=== PATIENT | male | born 1955 | race Caucasian/White ===

== ENCOUNTER 2020-02-10 17:06 | Emergency (ER) | payer MEDICARE, OTHER, SELFPAY ==
--- NOTE | ~2020-02-10 | CT_ITS ---
EXAMINATION: CTA chest abdomen DATE: 02/10/2020 19:10 INDICATION: Chest and upper back pain TECHNIQUE: Computed tomographic angiography (CTA) of the chest and abdomen was performed with 100 mL Omnipque-350 intravenous contrast. Maximum intensity projection 3D-reconstructions of the aorta and o ther arteries were constructed by the technologist on a separate workstation. The dose-length product (DLP) was 847.76 mGy-cm. Automated exposure control and iterative reconstruction technique were empl oyed. COMPARISON: 10/19/2014 FINDINGS: CHEST CTA: There is no aneurysm or dissection of the thoracic aorta. Calcified coronary artery atherosclerosis i s noted. There are changes of endoluminal aortic valve replacement. The pulmonary arteries are well-o pacified. No pulmonary embolism is identified. There is diffuse volume loss in the left hemithorax. T here are widespread subpleural reticular opacities and honeycombing, consistent with chronic intersti tial lung disease. The right lung is free of acute opacities. There is no pleural effusion or pneumot horax. The heart size is normal. There are age indeterminate compression fractures of T9, T10, and T1 2. There is nonunion at the site of a likely prior transverse sternotomy of the lower sternum with cat rrounding wire sternal sutures. ABDOMEN CTA: There is no aneurysm or dissection of the abdominal aorta. There is calcified atherosclerosis and mil d stenosis at the origin of the celiac axis. The left hepatic artery arises from the left gastric art jose. The common and right hepatic artery arises from the superior mesenteric artery. Single renal art eries are present bilaterally. The inferior mesenteric artery is unremarkable. Calcified atherosclero sis is noted. The liver, spleen, pancreas, and adrenal glands are normal. Stones are present in the n ondistended gallbladder. The kidneys are unremarkable. There are no pathologically enlarged abdominal lymph nodes. There is no free intraperitoneal gas or evidence of bowel obstruction. There is mild anai mbar spondylosis. IMPRESSION: 1. No aneurysm or dissection of the thoracic or abdominal aorta. 2. No pulmonary embolism. 3. Chronic interstitial lung disease of the left lung in a pattern of usual interstitial pneumonia (U IP). 3. Cholelithiasis without evidence of cholecystitis. 4. Age-indeterminate compression fractures of T9, T10, and T12. Reviewed, dictated and finalized at location A. IMPRESSION: 1. No aneurysm or dissection of the thoracic or abdominal aorta. 2. No pulmonary embolism. 3. Chronic interstitial lung disease of the left lung in a pattern of usual int erstitial pneumonia (UIP). 3. Cholelithiasis without evidence of cholecystitis. 4. Age-indeterminate compression fractures of T9, T10, and T12.
--- NOTE | ~2020-02-10 | XR_ITS ---
EXAMINATION: XR chest 2V DATE: 02/10/2020 18:15 INDICATION: Shortness of breath, history of lung transplantation TECHNIQUE: PA and lateral views of the chest are obtained. COMPARISON: None available FINDINGS: Airspace opacities are present in the left mid and lower lung zones. There is no pleural ef fusion or pneumothorax. The heart size is normal. There appear to be changes of endovascular cardiac valve repair. There are age-indeterminate compression fractures in the lower thoracic spine. IMPRESSION: 1. Airspace opacities of the left mid and lower lung zones, consistent with atelectasis versus pneumo judith. Reviewed, dictated and finalized at location A. IMPRESSION: 1. Airspace opacities of the left mid and lower lung zones, consistent with ate lectasis versus pneumonia.
[2020-02-10 17:13] VITALS: BP 180/96; PULSE 108; RESP 22; TEMP 36.8; O2SAT 93
--- NOTE | 2020-02-10 17:13 | ECG_ITS ---
Measurements Intervals [place] Rate: 106 P: -34 [place]: 142 QRS: -5 QRSD: 133 T: 137 QT: 370 QTc: 493 Interpretive Statements SINUS TACHYCARDIA FREQUENT ATRIAL PREMATURE COMPLEXES LEFT BUNDLE BRANCH BLOCK ABNORMAL ECG Electronically Signed On 02-11-2020 7:04:24 CDT by Hany Agrawal D.O.
[2020-02-10 17:17] VITALS: PULSE 104
[2020-02-10 17:35] LABS: Basophils Absolute Auto 0.1 K/mm3 (0.0-0.1); Basophils Percent Auto 0.4 % (0.2-1.2); Eosinophils Percent Auto 0.1 % (0-4.4); Hematocrit 36.9 % (42.0-52.0); Hemoglobin 11.2 g/dL (14.0-18.0); Immature Granulocyte Percent A 2.9 % (0-0.5); Lymphocytes Absolute Auto 0.74 K/mm3 (0.9-3.2); Lymphocytes Percent Auto 4.3 % (18.3-44.2); Mean Corpuscular HGB Conc 30.4 g/dl (32-36); Mean Corpuscular Volume 82.4 fl (80-100); Mean Platelet Volume 12.2 fl (7.4-10.4); Monocytes Absolute Auto 1.3 K/mm3 (0.1-0.6); Monocytes Percent Auto 7.4 % (2.6-8.5); Neutrophils Absolute Auto 14.5 K/mm3 (1.3-6.7); Neutrophils Percent Auto 84.9 % (45.5-73.1); Platelet Count Result 294 k/mm3 (150-375); Red Blood Count 4.48 M/mm3 (4.6-6.20); Red Cell Distribution Width 18.3 % (11.5-14.5); White Blood Count 17.1 K/mm3 (4.5-10.0)
[2020-02-10 17:45] LABS: INR 1.1; Partial Thromboplastin Time 23.5 SECONDS (22.3-36.8); Prothrombin Time 14.2 Seconds (11.1-14.7)
[2020-02-10 17:52] LABS: Anion Gap 12.7 mmol/L (7-16); Blood Urea Nitrogen 19 mg/dL (9-20); Calcium 9.9 mg/dL (8.4-10.2); Carbon Dioxide 30 mmol/L (22-30); Chloride 94 mmol/L (98-107); Estimated CRCL calculation 70 ml/min; Estimated Glomerular Filt Rate > 60; Glucose 238 mg/dL (75-110); Potassium 3.7 mmol/L (3.4-5.0); Sodium 133 mmol/L (137-145)
[2020-02-10 17:57] VITALS: BP 163/90; PULSE 106; RESP 23; O2SAT 96
--- NOTE | 2020-02-10 18:58 | ED.CHESTPAIN ---
HPI - Chest Pain General Chief Complaint: Chest Pain Stated Complaint: chest and upper back pain Time Seen by Provider: 02/10/20 17:26 Source: patient Mode of arrival: ambulatory Limitations: no limitations History of Present Illness HPI narrative: 64-year-old man History of a right lung transplant done some years ago at [place] and on chronic immunosuppression for that Also a history of an aortic valve replacement 3 months ago at [place] and on Eliquis for that Patient says that he has had several episodes of chest pain this year All of them last for several hours and have resolved, until today He has not noticed anything that improves them, he does not have any associated symptoms with them, they are mainly in the mid chest and radiate to the back, and there is some chance that they have been precipitated following eating either walnuts or cashew nuts About 2 weeks ago he had an evaluation in the ER at [place], reports they just told me a bunch of things that it was not , and discharged him with oxycodone Today he had another and possibly his worst episode, and after consultation with his primary care physician it was recommended that he try out the ER at [place] instead of returning to [place] complaint: chest pain Timing of current episode: episodic Prior episodes: Yes Pain location: other (Mid chest) Pain radiation: back Quality: aching Related Data Home Medications Medication Instructions Recorded Confirmed acyclovir 200 mg capsule 200 mg PO BID cap 06/14/19 01/31/20 amlodipine 5 mg tablet 5 mg PO DAILY 06/14/19 01/31/20 aspirin 81 mg tablet,delayed 81 mg PO DAILY 06/14/19 01/31/20 release cholecalciferol (vitamin D3) 50 2,000 unit PO DAILY 06/14/19 01/31/20 mcg (2,000 unit) tablet diphenhydramine HCl 25 mg tablet 50 mg PO Q6H PRN tablet 06/14/19 01/31/20 dofetilide 250 mcg capsule 250 mcg PO Q12H 06/14/19 01/31/20 enoxaparin 60 mg/0.6 mL 60 mg SUB-Q Q12H 06/14/19 01/31/20 subcutaneous syringe fludrocortisone 0.1 mg tablet 0.1 mg PO DAILY 06/14/19 01/31/20 insulin lispro 200 unit/mL (3 mL) See Rx Instructions SUB-Q QACBREAK 06/14/19 01/31/20 subcutaneous pen isavuconazonium sulfate 186 mg 372 mg PO DAILY 06/14/19 01/31/20 capsule levothyroxine 50 mcg tablet 50 mcg PO DAILY 06/14/19 01/31/20 minocycline 100 mg capsule 100 mg PO Q12H 06/14/19 01/31/20 nitroglycerin 0.4 mg sublingual 0.4 mg SUBLINGUAL Q5M PRN 06/14/19 01/31/20 tablet polyethylene glycol 3350 17 gram 17 gm PO DAILY 06/14/19 01/31/20 oral powder packet prednisone 5 mg tablet 5 mg PO DAILY 06/14/19 01/31/20 sulfamethoxazole 800 1 tablet PO Q12H 06/14/19 01/31/20 mg-trimethoprim 160 mg tablet tamsulosin 0.4 mg capsule 0.4 mg PO DAILY 06/14/19 01/31/20 apixaban 5 mg tablet 5 mg PO BID 08/02/19 01/31/20 furosemide 40 mg tablet 40 mg PO BID 08/02/19 01/31/20 insulin glargine 100 unit/mL (3 30 unit SUB-Q DAILY 08/02/19 01/31/20 mL) subcutaneous pen metoprolol tartrate 25 mg tablet 25 mg PO BID tablet 08/02/19 01/31/20 mycophenolate mofetil 500 mg tablet 1,000 mg PO Q12H tablet 08/02/19 01/31/20 tacrolimus 0.5 mg capsule 1.5 mg PO Q12H cap 08/02/19 01/31/20 clopidogrel 75 mg tablet 75 mg PO DAILY 11/02/19 01/31/20 rosuvastatin 40 mg tablet 40 mg PO DAILY 01/31/20 01/31/20 Allergies Allergy/AdvReac Type Severity Reaction Status Date / Time gramicidin D Allergy Mild Verified 11/23/14 07:04 neomycin Allergy Mild Verified 11/23/14 07:04 bacitracin Allergy Unknown Hives Verified 11/10/18 08:40 polymyxin B Allergy Unknown Hives Verified 11/10/18 08:40 Review of Systems Review of Systems: All systems reviewed & are unremarkable except as noted in HPI and below Constitutional: Constitutional: Denies chills and Denies fever(s) ENT: Denies vertigo and Denies sore throat Cardiovascular: Cardiovascular: Reports chest pain, Denies rapid heart rate and Denies radiating jaw, neck or arm pain Respiratory: Respiratory: Denies cough a
[2020-02-10 19:34] VITALS: BP 175/86; PULSE 108; RESP 23; O2SAT 94
[2020-02-10] MEDS: BELLADONNA ALK/PHENOB ELIX 10 ML, MAG HYDROX/ALUMINUM HYD/SIMETH 30 ML, LIDOCAINE HCL 2... PO (19:53)
[2020-02-10 20:13] LABS: Glucose Point of Care 214 (65-105)
--- NOTE | 2020-02-10 20:18 | PC.NURSE ---
pt states pain still 01/25 after GI cocktail notified.
[2020-02-10 20:21] LABS: Lipase 26 U/L (23-300)
[2020-02-10 20:49] VITALS: BP 162/88; PULSE 101; RESP 18; O2SAT 99
[2020-02-10 20:51] LABS: Troponin I 0.024 ng/mL (0.000-0.034)
[2020-02-10] MEDS: DICYCLOMINE HCL INJ 20 MG/2 ML VIAL IM (21:00)
[2020-02-10 22:07] VITALS: BP 169/89; PULSE 105; RESP 23; O2SAT 95
[2020-02-12 01:52] LABS: SARS-CoV-2 RNA PCR Negative
== END 2020-02-10 22:09 | disposition home or self-care (01) ==
PROVIDERS: Emergency Provider Emergency Medicine; PCP Family Medicine
DX: K80.20 Calculus of gallbladder without cholecystitis without obstruction (principal); Z20.828 Contact with and (suspected) exposure to other viral communicable diseases; Z94.2 Lung transplant status; Z95.2 Presence of prosthetic heart valve; Z79.01 Long term (current) use of anticoagulants; Z79.82 Long term (current) use of aspirin; Z79.4 Long term (current) use of insulin; Z79.84 Long term (current) use of oral hypoglycemic drugs; R00.0 Tachycardia, unspecified; I49.1 Atrial premature depolarization; I44.7 Left bundle-branch block, unspecified
CPT/HCPCS: 36415; 71046; 71275; 74175; 80048; 82948; 83690; 84484; 85025; 85610; 85730; 87635; 93005; 96372; 99284; A9270; C9803; J0500; Q9967; U0003

== ENCOUNTER 2021-06-02 02:24 | Day surgery (SDC) | payer MEDICARE, OTHER, SELFPAY ==
[2021-05-19 14:56] VITALS: BMI 30.4
[2021-06-02 06:36] VITALS: BP 136/88; PULSE 56; RESP 24; TEMP 35.7; O2SAT 100; BMI 29.6
[2021-06-02 06:37] LABS: Glucose Point of Care 163 mg/dl (65-105)
[2021-06-02] MEDS: LACTATED RINGERS 1,000 ML 150 ML IV CONT (06:40)
--- NOTE | 2021-06-02 06:49 | WPDANESEPPF ---
Anes - Initial Pre Proc Eval Procedure: Operation Date: 06/02/21 07:30 Proposed Procedures p Screening Colonoscopy - Ernie Looney MD Date/Time: 06/02/21 06:49 Surgeon: Ernie Looney MD Pre Op Diagnosis: hx of colon polyps Patient Data Age: 66 Gender: M Height: 1.7 m Weight: 85.8 kg Last Vital Signs Temp 35.7 C L 06/02/21 06:36 Pulse 56 L 06/02/21 06:36 Resp 24 H 06/02/21 06:36 BP 136/88 06/02/21 06:36 Pulse Ox 100 06/02/21 06:36 Allergies Allergy/AdvReac Type Severity Reaction Status Date / Time gramicidin D Allergy Mild Hives Verified 06/02/21 06:19 neomycin Allergy Mild Hives Verified 06/02/21 06:19 bacitracin Allergy Unknown Hives Verified 06/02/21 06:19 polymyxin B Allergy Unknown Hives Verified 06/02/21 06:19 Home Medications Medication Instructions Recorded Confirmed Type acyclovir 200 mg capsule 200 mg PO BID cap 06/14/19 05/19/21 History aspirin 81 mg tablet,delayed 81 mg PO DAILY 06/14/19 05/19/21 History release cholecalciferol (vitamin D3) 50 2,000 unit PO DAILY 06/14/19 05/19/21 History mcg (2,000 unit) tablet diphenhydramine HCl 25 mg tablet 50 mg PO Q6H PRN tablet 06/14/19 05/19/21 History dofetilide 250 mcg capsule 250 mcg PO Q12H 06/14/19 05/19/21 History nitroglycerin 0.4 mg sublingual 0.4 mg SUBLINGUAL Q5M PRN 06/14/19 05/19/21 History tablet polyethylene glycol 3350 17 gram 17 gm PO DAILY 06/14/19 05/19/21 History oral powder packet prednisone 5 mg tablet 5 mg PO DAILY 06/14/19 05/19/21 History tamsulosin 0.4 mg capsule 0.4 mg PO DAILY 06/14/19 05/19/21 History apixaban 5 mg tablet 5 mg PO BID 08/02/19 05/19/21 History mycophenolate mofetil 500 mg tablet 1,000 mg PO Q12H tablet 08/02/19 05/19/21 History tacrolimus 0.5 mg capsule, 1.5 mg PO Q12H cap 08/02/19 05/19/21 History immediate-release rosuvastatin 40 mg tablet 40 mg PO DAILY 01/31/20 05/19/21 History acetaminophen 500 mg capsule 500 mg PO Q6H PRN 03/15/20 05/19/21 History calcium carbonate 600 mg calcium 1,200 mg PO DAILY tablet 03/15/20 05/19/21 History (1,500 mg) tablet mecobalamin (vitamin B12) 1,000 1,000 mcg PO DAILY 03/15/20 05/19/21 History mcg chewable tablet omeprazole 20 mg capsule,delayed 40 mg PO BID cap 03/15/20 05/19/21 History release insulin glargine 100 unit/mL (3 10 unit SUB-Q DAILY ml 11/25/20 05/19/21 History mL) subcutaneous pen insulin lispro 200 unit/mL (3 mL) 5 unit SUB-Q TID ml 11/25/20 05/19/21 History subcutaneous pen metoprolol tartrate 25 mg tablet 12.5 mg PO BID tablet 11/25/20 05/19/21 History pentamidine 300 mg solution for 300 mg INHALATION . Q 30 days ea 11/25/20 05/19/21 History inhalation escitalopram oxalate 10 mg tablet 5 mg PO DAILY #45 tablet 11/26/20 05/19/21 Rx amlodipine 5 mg tablet 5 mg PO DAILY 04/24/21 05/19/21 History ferrous sulfate 325 mg (65 mg 325 mg PO DAILY 04/24/21 05/19/21 History iron) tablet fexofenadine 180 mg tablet 180 mg PO DAILY PRN 04/24/21 05/19/21 History furosemide 40 mg tablet 40 mg PO QAM PRN 04/24/21 05/19/21 History levothyroxine 50 mcg tablet 50 mcg PO DAILY 04/24/21 05/19/21 History fluticasone propionate 50 1 spray NASAL BID PRN #54.6 ml 05/30/21 Rx mcg/actuation nasal spray,suspension Laboratory Tests 06/02/21 06:33 POC Capillary Glucose 163 mg/dl H mg/dl (65-105) Patient hx anesthesia problems: none Family hx anesthesia problems: none Results Review: All pre-operative results and documents have been reviewed as part of the pre-operative evaluation. [facility] Past Medical History Medical History (Updated 06/02/21 @ 06:56 by Cody Fong MD) Aortic valve insufficiency Atrial fibrillation with controlled ventricular response BMI 31.0-31.9,adult Cholelithiasis Chronic anemia Chronic depression Compression fracture of body of thoracic vertebra Congestive heart failure Coronary artery disease involving [place] coronary artery of [place] heart without angina
--- NOTE | 2021-06-02 07:26 | WPDPN ---
Progress Note: A&P Assessment and Plan (1) History of colon polyps: Code(s): Z86.010 - Personal history of colonic polyps Status: Acute Assessment and Plan: Patient has a history of adenomatous colon polyps. Plan is for surveillance colonoscopy now further recommendations will be given after endoscopy. (2) Lung transplant recipient: Code(s): Z94.2 - Lung transplant status Status: Acute Assessment and Plan: Patient followed by pulmonary service at tertiary care center. Appears to be stable after lung transplant. (3) Aortic valve insufficiency: Code(s): I35.1 - Nonrheumatic aortic (valve) insufficiency Status: Acute Assessment and Plan: patient status T AVR procedure because of aortic valve insufficiency appears to be doing well. Subjective Date/time seen: 06/02/21 07:26 This is a 66-year-old white male patient who presents for colonoscopy. Patient has a history of adenomatous colon polyp removed from the colon in 2008. Most recent colonoscopy 2014 was unremarkable. Patient presents today for follow-up colonoscopy. He reports his current weight appetite bowel movements are normal. He denies abdominal pain. Family history is noncontributory. Patient's past history is significant for a lung transplant 3 years ago. This past year he had a TAVR vascular aortic valve repair placement. He states he has been doing well after both these procedures. Family history noncontributory. Review of Systems Review of Systems: All systems reviewed & are unremarkable except as noted in HPI and below Exam Narrative: Physical exam reveals patient be alert. Vital signs stable. HEENT exam is unremarkable. Patient is anicteric. Lungs are clear to auscultation and percussion. Heart is without murmur or extra sounds. Abdominal exam bowel sounds are present soft nontender with no hepatosplenomegaly. Digital external rectal exam is normal. Objective Data Vital Signs Vital Signs: Vital Signs - 24 hr 06/02/21 06:36 Temperature 96.3 F L Pulse Rate 56 L Respiratory Rate 24 H Blood Pressure 136/88 Pulse Oximetry 100 Meds/Results Medications: Active Medications Generic Name Dose Route Start Last Admin Trade Name Freq PRN Reason Stop Dose Admin Lactated Ringer's 1,000 mls @ 150 mls/hr 06/02/21 06:40 06/02/21 06:40 Lr - Lactated Ringers Iv IV CONT 150 mls/hr .Q6H40M FRED Administration Labs Labs: Laboratory Results - last 24 hr 06/02/21 06:33 POC Capillary Glucose 163 H
[2021-06-02 07:48] VITALS: BP 96/60; PULSE 88; RESP 25; O2SAT 100
[2021-06-02 07:58] VITALS: BP 119/85; PULSE 89; RESP 31; O2SAT 100
[2021-06-02 08:03] LABS: Glucose Point of Care 201 mg/dl (65-105)
[2021-06-02 08:08] VITALS: BP 124/61; PULSE 77; RESP 29; O2SAT 100
--- NOTE | 2021-06-04 14:07 | WPDGICN ---
Assessment and Plan Assessment and plan (1) History of colon polyps: Code(s): Z86.010 - Personal history of colonic polyps Status: Acute Assessment and Plan: Patient has a prior history of colon polyps more than 10 years ago. Plan is for screening colonoscopy. Further recommendations will be given after endoscopy. 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 Patient has a distant history of adenomatous colon polyp removed in 2008. Most recent colonoscopy 5 years ago was unremarkable. Patient presents today for screening colonoscopy. He denies abdominal pain. He has had no bleeding. Family history is noncontributory. Patient's past history is significant for atrial fibrillation. He has a distant history of a lung transplant. His but doing well subsequently. He has been treated for GE reflux disease and diabetes . Anticoagulation will be held prior to endoscopy. Review of Systems Review of Systems: All systems reviewed & are unremarkable except as noted in HPI and below PMFSH Past Medical History Medical History (Updated 06/02/21 @ 07:29 by Ernie Looney MD) Aortic valve insufficiency Atrial fibrillation with controlled ventricular response BMI 31.0-31.9,adult Cholelithiasis Chronic anemia Chronic depression Compression fracture of body of thoracic vertebra Congestive heart failure Coronary artery disease involving [place] coronary artery of [place] heart without angina pectoris Essential (primary) hypertension Gastro-esophageal reflux disease without esophagitis Hypothyroidism, unspecified Idiopathic pulmonary 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 Lung transplant recipient Nocturia Obstructive sleep apnea on CPAP auto titrating CPAP with average pressure between 10 and 12 cm water pressure prescribed by web content executive Pulmonary embolism on right (~10/06/20) Recurrent biliary colic Seasonal allergic rhinitis Type 2 diabetes mellitus without complication, with long-term current use of insulin Surgical History Surgical History (Updated 06/02/21 @ 06:56 by Cody Fong MD) Lung transplant status Family History Family History Mother Diabetes mellitus Hypertension Father Family history of coronary artery disease Grandparent Family history of coronary artery disease Social History Social History Smoking packs per day: 1 Smoking cigarettes per day: 20.0 Smoking status: Former smoker Tobacco type: cigarettes Alcohol intake: never Substance use: never Substance use type: does not use Living arrangements: with family Meds Home Medications and Allergies Home Medications Medication Instructions Recorded Confirmed Type acyclovir 200 mg capsule 200 mg PO BID cap 06/14/19 05/19/21 History aspirin 81 mg tablet,delayed 81 mg PO DAILY 06/14/19 05/19/21 History release cholecalciferol (vitamin D3) 50 2,000 unit PO DAILY 06/14/19 05/19/21 History mcg (2,000 unit) tablet diphenhydramine HCl 25 mg tablet 50 mg PO Q6H PRN tablet 06/14/19 05/19/21 History dofetilide 250 mcg capsule 250 mcg PO Q12H 06/14/19 05/19/21 History nitroglycerin 0.4 mg sublingual 0.4 mg SUBLINGUAL Q5M PRN 06/14/19 05/19/21 History tablet polyethylene glycol 3350 17 gram 17 gm PO DAILY 06/14/19 05/19/21 History oral powder packet prednisone 5 mg tablet 5 mg PO DAILY 06/14/19 05/19/21 History tamsulosin 0.4 mg capsule 0.4 mg PO DAILY 06/14/19 1
== END 2021-06-02 08:28 | disposition home or self-care (01) ==
PROVIDERS: PCP Family Medicine; Visit Provider Internal Medicine Gastroenterology
PROC: 0DJD8ZZ Inspection of Lower Intestinal Tract, Via Natural or Artificial Opening Endoscopic (ICD-10-PCS; CPT 45378; principal; 2021-06-02 07:30)
DX: Z12.11 Encounter for screening for malignant neoplasm of colon (principal); Z86.010 Personal history of colon polyps; K57.30 Diverticulosis of large intestine without perforation or abscess without bleeding; K64.8 Other hemorrhoids; Z94.2 Lung transplant status; E11.9 Type 2 diabetes mellitus without complications; D64.9 Anemia, unspecified; F32.9 Major depressive disorder, single episode, unspecified; E03.9 Hypothyroidism, unspecified; I11.0 Hypertensive heart disease with heart failure; I50.9 Heart failure, unspecified; I25.10 Atherosclerotic heart disease of native coronary artery without angina pectoris; K21.9 Gastro-esophageal reflux disease without esophagitis; I48.91 Unspecified atrial fibrillation; J84.10 Pulmonary fibrosis, unspecified; G47.33 Obstructive sleep apnea (adult) (pediatric); Z86.711 Personal history of pulmonary embolism; Z79.4 Long term (current) use of insulin; I35.1 Nonrheumatic aortic (valve) insufficiency; Z87.891 Personal history of nicotine dependence; Z79.01 Long term (current) use of anticoagulants; Z79.82 Long term (current) use of aspirin; E66.9 Obesity, unspecified; Z68.29 Body mass index [BMI] 29.0-29.9, adult
CPT/HCPCS: G0105; 82948; J2001; J2704; J3370; J7120

== ENCOUNTER 2022-06-26 16:42 | Inpatient (IN) | payer MEDICARE, OTHER, SELFPAY ==
[2022-06-26] VITALS (39 sets, daily range): BP systolic 102–140; BP diastolic 74–109; PULSE 97–151; RESP 18–28; TEMP 36.3; O2SAT 94–95
--- NOTE | ~2022-06-26 | XR_ITS ---
XR chest 2V 06/26/2022 17:44 Indication: Chest pain Procedure: AP and lateral views of the chest Comparison: 02/10/2020 Findings: Stable extensive mixed interstitial and airspace disease of the left lung which may represe nt chronic atelectasis/fibrosis and/or atypical pneumonia. Stable cardiomediastinal silhouette. There is a prosthetic heart valve. There is a small right pleural effusion. Impression: 1: Stable extensive mixed interstitial and airspace disease of the left mid and lower lung which may represent chronic atelectasis/fibrosis and/or atypical pneumonia. 2: Small right pleural effusion. Reviewed, dictated and finalized at location [facility] Impression: 1: Stable extensive mixed interstitial and airspace disease of the left mid and lower lung which may represent chronic atelectasis/fibrosis and/or atypical pn eumonia. 2: Small right pleural effusion.
--- NOTE | 2022-06-26 16:46 | ECG_ITS ---
Measurements Intervals [place] Rate: 140 P: [place]: 0 QRS: -7 QRSD: 127 T: 156 QT: 308 QTc: 471 Interpretive Statements ATRIAL FIBRILLATION WITH RAPID VENTRICULAR RESPONSE LEFT BUNDLE BRANCH BLOCK [120+ ms QRS DURATION, 80+ ms Q/S IN V1/V2, 85+ ms R IN I/aVL/V5/V6] COMPARED TO ECG 02/10/2020 17:14:50 ATRIAL FIBRILLATION NOW PRESENT Electronically Signed On 06-26-2022 17:28:56 [employer] by Herb Armstrong M.D.
--- NOTE | 2022-06-26 17:34 | ED.SOB ---
HPI - SOB/Dyspnea General Chief Complaint: Shortness of Breath/Dyspnea Stated Complaint: tachycardia Time Seen by Provider: 06/26/22 17:06 History of Present Illness HPI Narrative: Patient is a 67-year-old male with a history of lung transplantation secondary to pulmonary fibrosis, A. fib on Eliquis, aortic valve replacement, diabetes, hypertension presenting with shortness of breath. Patient states that he has been struggling with shortness of breath over the last several weeks. He saw his sheetmetal patternmaker about 2 weeks ago and was started on ciprofloxacin and a prednisone taper. States that he has continued to be short of breath and has noticed that his heart is racing over the last 1 to 2 weeks. States that it has been sitting in the 130s to 150s. States that he called his environmental health physician's office who told him to come to the ER. Currently, patient reports some mild chest discomfort but he denies chest pain. He denies recent fevers or chills, headache, numbness or weakness, lightheadedness, abdominal pain, nausea or vomiting, diarrhea, leg swelling. Patient states that he has been compliant with his Eliquis. Related Data Home Medications Medication Instructions Recorded Confirmed acyclovir 200 mg capsule 200 mg PO BID 06/14/19 06/27/22 aspirin 81 mg tablet,delayed 81 mg PO DAILY 06/14/19 06/27/22 release (Adult Low Dose Aspirin) cholecalciferol (vitamin D3) 50 2,000 unit PO DAILY 06/14/19 06/27/22 mcg (2,000 unit) tablet polyethylene glycol 3350 17 gram 17 gm PO DAILY PRN Constipation 06/14/19 06/27/22 oral powder packet (Miralax) prednisone 5 mg tablet 5 mg PO DAILY 06/14/19 06/27/22 tamsulosin 0.4 mg capsule 0.4 mg PO DAILY 06/14/19 06/27/22 apixaban 5 mg tablet 2.5 mg PO BID 08/02/19 06/27/22 mycophenolate mofetil 500 mg tablet 1,000 mg PO Q12H 08/02/19 06/27/22 rosuvastatin 40 mg tablet (Crestor) 40 mg PO DAILY 01/31/20 06/27/22 acetaminophen 500 mg capsule 500 mg PO Q6H PRN other 03/15/20 06/27/22 calcium carbonate 600 mg calcium 1,500 mg PO DAILY 03/15/20 06/27/22 (1,500 mg) tablet mecobalamin (vitamin B12) 1,000 1,000 mcg PO DAILY 03/15/20 06/27/22 mcg chewable tablet omeprazole 20 mg capsule,delayed 40 mg PO BID 03/15/20 06/27/22 release pentamidine 300 mg solution for 300 mg inhalation . Q 30 days 11/25/20 06/27/22 inhalation amlodipine 5 mg tablet 5 mg PO DAILY 04/24/21 06/27/22 ferrous sulfate 325 mg (65 mg 325 mg PO DAILY 04/24/21 06/27/22 iron) tablet levothyroxine 50 mcg tablet 50 mcg PO DAILY 04/24/21 06/27/22 insulin glargine 100 unit/mL (3 24 unit subcut DAILY 10/08/21 06/27/22 mL) subcutaneous pen (Lantus Solostar U-100 Insulin) insulin lispro 200 unit/mL (3 mL) 5 unit subcut TID 10/08/21 06/27/22 subcutaneous pen (Humalog KwikPen U-200 Insulin) tacrolimus 0.5 mg capsule, 1 mg PO Q12H 10/08/21 06/27/22 immediate-release cetirizine 10 mg tablet (Zyrtec) 10 mg PO DAILY allergies 03/18/22 06/27/22 metoprolol tartrate 25 mg tablet 25 mg PO BID 03/18/22 06/27/22 furosemide 40 mg tablet 40 mg PO DAILY PRN Edema 06/27/22 06/27/22 insulin lispro 100 unit/mL 1 sliding scale dose subcut 06/27/22 06/27/22 subcutaneous solution (Humalog USEASDIRECTD U-100 Insulin) prednisone 10 mg tablets in a dose 20 mg PO DIRECTED 06/27/22 06/27/22 pack Allergies Allergy/AdvReac Type Severity Reaction Status Date / Time gramicidin D Allergy Mild Hives Verified 06/27/22 06:43 neomycin Allergy Mild Hives Verified 06/27/22 06:43 bacitracin Allergy Unknown Hives Verified 06/27/22 06:43 polymyxin B Allergy Unknown Hives Verified 06/27/22 06:43 Review of Systems Review of Systems: All systems reviewed & are unremarkable except as noted in HPI and below PMFSH Past Medical History Medical History (Updated 06/27/22 @ 17:13 by Tena Valverde MD) Aortic valve insufficiency Aortic valve replacement 10/19/2019. Body mass index (bmi) 30.0-30.9, adult (11/10/18) Chronic anemia Hemoglobin 11.9,
[2022-06-26 17:39] LABS: Alanine Aminotransferase 17 U/L (6-50); Albumin Level 3.5 g/dL (3.5-5.1); Alkaline Phosphatase 61 U/L (38-126); Anion Gap 7 mmol/L (8-16); Aspartate Amino Transferase 23 U/L (17-59); Bilirubin,Total 0.3 mg/dL (0.2-1.3); Blood Urea Nitrogen 68 mg/dL (9-20); Calcium 8.5 mg/dL (8.4-10.2); Carbon Dioxide 23 mmol/L (22-30); Chloride 104 mmol/L (98-107); Estimated CRCL calculation 24 ml/min; Estimated Glomerular Filt Rate 22; Glucose 228 mg/dL (65-110); Lipase 68 U/L (23-300); Potassium 4.8 mmol/L (3.4-5.0); Sodium 134 mmol/L (137-145)
[2022-06-26 17:53] LABS: Troponin I 0.046 ng/mL (0.000-0.034)
[2022-06-26 18:09] LABS: Basophils Percent Auto 0.1 % (0.2-1.2); Eosinophils Percent Auto 0.1 % (0-4.4); Hematocrit 32.8 % (42.0-52.0); Hemoglobin 10.2 g/dL (14.0-18.0); Immature Granulocyte Absolute 0.39 K/mm3 (0.00-0.031); Lymphocytes Absolute Auto 0.22 K/mm3 (0.9-3.2); Lymphocytes Percent Auto 1.2 % (18.3-44.2); Mean Corpuscular HGB Conc 31.1 g/dl (32-36); Mean Corpuscular Hemoglobin 32.6 pg (26-34); Mean Corpuscular Volume 104.8 fl (80-100); Mean Platelet Volume 12.8 fl (7.4-10.4); Monocytes Absolute Auto 0.6 K/mm3 (0.1-0.6); Monocytes Percent Auto 3.1 % (2.6-8.5); Neutrophils Absolute Auto 17.8 K/mm3 (1.3-6.7); Neutrophils Percent Auto 93.5 % (45.5-73.1); Platelet Count Result 136 k/mm3 (150-375); Red Blood Count 3.13 M/mm3 (4.6-6.20); Red Cell Distribution Width 16.2 % (11.5-14.5); White Blood Count 19.1 K/mm3 (4.5-10.0)
[2022-06-26 18:43] LABS: Influenza A QL RT-PCR Negative (Negative); Influenza B QL RT-PCR Negative (Negative); RSV RNA, RT-PCR Negative (Negative); SARS-CoV-2 RNA PCR Negative
[2022-06-26 18:46] LABS: INR 1.1; Prothrombin Time 14.1 Seconds (11.1-14.7)
[2022-06-26 18:47] LABS: Partial Thromboplastin Time 22.1 SECONDS (22.3-36.8)
--- NOTE | 2022-06-26 18:51 | PC.NURSE ---
out of stock if dil[facility]zem drip in [facility], pharmacy notified
[2022-06-26] MEDS: dilTIAZem 100 MG/100 ML 100 MG/100 ML BAG IV CONT (19:00)
[2022-06-26] MEDS: dilTIAZem HCl INJ 25 MG/5 ML VIAL 10 MG IV PUSH (19:04)
[2022-06-26] MEDS: SODIUM CHLORIDE 0.9% IV 500 ML 999 ML IV CONT (19:05)
[2022-06-26 21:41] LABS: NT Pro B Type Natriuretic Pept 19000 pg/mL (5-100)
[2022-06-26 22:03] LABS: Troponin I 0.044 ng/mL (0.000-0.034)
--- NOTE | 2022-06-26 22:12 | PM.IMHP ---
H&P: HPI History of Present Illness Date/Time: 06/26/22 22:12 Chief Complaint: Shortness of breath Narrative: 67-year-old male with past medical history of diastolic dysfunction, TAVR, paroxysmal atrial fibrillation status post cardiac ablation, coronary artery disease with a total of 6 cardiac stents, right-sided lung transplant on immunosuppressive therapy and chronic hypoxic respiratory failure who presented to the ER with shortness of breath. The patient reports to me that a couple of months ago he was hospitalized for a GI bleed. He had an EGD at that time which demonstrated no evidence of ulcer or source of bleeding. He was having melena at that time. His Eliquis was briefly held and his GI bleed stopped. He did not have a colonoscopy at that time. However when he returned home from the hospital stay his CPAP machine was not working. He went through various attempts to obtain a new machine but his new machine also did not work. He did get him new machine a few weeks ago but has not been able to use it due to feeling even more short of breath with the CPAP. He reports that he has been chronically short of breath ever since he had his lung transplant in 2018. However when he followed up with his core piler in May they set him up with some physical therapy and pulmonary rehab services. He said after the 3rd session of pulmonary rehab it was noted that his heart rate is were climbing into the 130s. However as time has gone on he has spent more more time with an elevated heart rate. Last Wednesday he noticed that his heart rate at rest was in the 130s to 150s range. He called his core piler to told him to call his defensive driving instructor. He called his defensive driving instructor and they stated that they would set him up with a heart monitor. However his defensive driving instructor's office never sent him the heart monitor. He stated that over the last week he has become so short of breath that he cannot walk the 10 ft to the bathroom without sitting down to rest. He has not noticed any increased lower extremity swelling from baseline. He does have p.r.n. Lasix was ordered for when his legs swell. He has noticed that abdomen is felt a little bloated over the last couple of weeks despite him trying to lose weight. He does awaken once a week and he thinks that his weight has been pretty much stable. He denies any chest pain. He reports the chest pressure but relates this to his degree of dyspnea. He does not really feel his rapid heart rate. He denies any significant urinary symptoms. He has not had any recent melena or change in in his bowel habits. Denies any nausea or vomiting. He is on PPI therapy for GERD. He denies any fevers or chills. He has not had any significant cough. When he went to his core piler in mid May he was given a prednisone burst with taper. He reports that he has 2 more days of prednisone 20 mg a day a left before he drops down to 10 mg a day before he returns to his baseline prednisone of 5 mg a day. He reports that his Lasix had been changed from daily down to p.r.n. several months ago when his renal function started to decline more. His creatinine at his last core piler appointment was around 2. He reports that since she has been on the steroids his glucoses at home have been in the mid 200s to 300s but before that his A1c was around 7 (February 2022 A1c was 6.9). He sees an food sales clerk at [facility]. His donor services technician, core piler and defensive driving instructor are also at [facility]. He did not go to [facility] because he did not want a sit in [facility] ER waiting room. The patient uses 3 L of oxygen with activity at home. He is usually on CPAP with bleed in oxygen at 1 L at night but he has not been using this for several months. I ordered BiPAP in the ER and the patient refused it. He reports symptoms concerning from mild diabetic peripheral neuropathy in his feet. Review of Systems Review of Systems: 12 systems were reviewed with pertinent posi
[2022-06-26] MEDS: METOPROLOL TARTRATE 50 MG TAB PO (22:24)
[2022-06-27] VITALS (50 sets, daily range): BP systolic 103–172; BP diastolic 68–160; PULSE 81–142; RESP 16–32; TEMP 36.2–36.8; O2SAT 95–100; BMI 31.2
--- NOTE | 2022-06-27 | ECHO_ITS ---
Patient Info Name: Timo Worrell Age: 67 years : 1955 Gender: Male Ht: 67 in Wt: 200 lbs BSA: 2.10 m2 HR: 105 bpm BP: 124 / 84 mmHg Heart Rhythm: Atrial Fibrillation Technical Quality: Other Exam Date: 06/27/2022 10:57 AM Exam Location: [facility] Patient Status: Inpatient Admit Date: 06/27/2022 Staff Ordering Physician: Cari Sneed DO Recovery Coordinator: Charla Giraldo RDCS Attending Provider: Lexy Mancia MD Referring Physician: Naren CHRISTINA; Exam Type: CA echo dop color flow w con Study Info Indications I48.1 - Persistent atrial fibrillation Complete two-dimensional, color flow and Doppler transthoracic echocardiogram is performed with contrast to opacify the left ventricle and to improve the deliniation of the left ventricle endocardial borders. Contrast/Agitated Saline Contrast/Ag. Saline: Definity Amount: 4.00 ml Administered By: Charla Giraldo RUST Summary 1. Technically difficult examination because of obesity. 2. Definity contrast injected to improve left ventricular visualization. 3. Dilated left atrium. 4. Normal LV size and systolic function. 5. Poorly visualized TAVR valve which appears to be functioning normally by Doppler. 6. Trivial amount of mitral regurgitation. 7. Thickened pericardium. Left Ventricle Left ventricular chamber dimension is normal. Left ventricular systolic function is normal, estimated at 60-65%. The left ventricular diastolic function is grade I diastolic dysfunction. Right Ventricle Right ventricular chamber dimension is normal. Left Atria Left atrial chamber dimension is moderately enlarged. Right Atria Right atrial chamber dimension is not well visualized. Aortic Valve The TAVR aortic valve is not well visualized. There is no TAVR aortic valve stenosis. There is no regurgitation of the TAVR aortic valve. Pulmonic Valve The pulmonic valve is not well visualized. Mitral Valve The mitral valve has normal leaflets. There is trace mitral valve regurgitation. Tricuspid Valve The tricuspid valve leaflets are not well visualized. Pericardium/Pleural The pericardium appears thickened pericardium. Aorta The aortic root size at the sinus of Valsalva is normal. Left Ventricular Outflow Tract Name Value Normal LVOT 2D LVOT Diameter 2.01 cm LVOT Doppler LVOT Peak Gradient 4 mmHg LVOT Mean Gradient 2 mmHg LVOT VTI 18.91 cm LVOT VTI/AV VTI Ratio 0.66 LVOT Stroke Volume 60.25 ml LVOT CO 6.05 l/min LVOT CI 2.88 L/min/m2 Pulmonic Valve Name Value Normal PV Doppler PV Peak Gradient 3 mmHg Aortic
--- NOTE | 2022-06-27 00:30 | PC.NURSE ---
patient noted to have no medication list on chart. patient is resting comfortably at this time unable to obtain medication list.
[2022-06-27 00:33] LABS: Troponin I 0.048 ng/mL (0.000-0.034)
[2022-06-27] MEDS: FUROSEMIDE INJ 40 MG/4 ML VIAL IV PUSH (01:07)
--- NOTE | 2022-06-27 01:19 | PCRCNOTE ---
Per pt he refusing CPAP for tonight. Pt placed on 3 liter.
--- NOTE | 2022-06-27 03:15 | PC.NURSE ---
assumed care of the patient. Patient sleeping at this time. Patient unable to give information regarding his medications. No medication profile on patient's chart.
--- NOTE | 2022-06-27 06:22 | ADMGEN ---
This patient, Timo Worrell, was admitted to IMU Room 204-01 on 06/27/22 at 0618. Patient/family oriented to hospital policies and general routines including ID bracelet, bed and alarms, visiting hours, pain management, procedures, bathroom and other care routines, personal items, smoking policy, room service/diet, and visiting hours. Information on how to activate the Rapid Response Team has been discussed. Patient/Family are encouraged to report perceived risks to care and to ask questions if they do not understand what they are told or what they should do.
[2022-06-27 08:13] LABS: Glucose Point of Care 93 mg/dl (65-105)
[2022-06-27] MEDS: METOPROLOL TARTRATE 50 MG TAB PO ×2 (08:46→21:01)
[2022-06-27] MEDS: APIXABAN 5 MG TABLET PO ×2 (08:46→21:01)
[2022-06-27] MEDS: INSULIN GLARGINE (*BKC) 100 UNITS/ML 24 UNITS SUB-Q (08:55)
[2022-06-27 09:11] LABS: Basophils Percent Auto 0.2 % (0.2-1.2); Eosinophils Absolute Auto 0.1 K/mm3 (0-0.3); Eosinophils Percent Auto 0.6 % (0-4.4); Hematocrit 33.9 % (42.0-52.0); Hemoglobin 10.3 g/dL (14.0-18.0); Immature Granulocyte Absolute 0.33 K/mm3 (0.00-0.031); Immature Granulocyte Percent A 1.7 % (0-0.5); Immature Platelet Fraction Pct 11.1 % (0.9-11.2); Lymphocytes Absolute Auto 0.84 K/mm3 (0.9-3.2); Lymphocytes Percent Auto 4.4 % (18.3-44.2); Mean Corpuscular HGB Conc 30.4 g/dl (32-36); Mean Corpuscular Hemoglobin 31.8 pg (26-34); Mean Corpuscular Volume 104.6 fl (80-100); Monocytes Absolute Auto 1.3 K/mm3 (0.1-0.6); Monocytes Percent Auto 6.9 % (2.6-8.5); Neutrophils Absolute Auto 16.5 K/mm3 (1.3-6.7); Neutrophils Percent Auto 86.2 % (45.5-73.1); Platelet Count Result 123 k/mm3 (150-375); Red Blood Count 3.24 M/mm3 (4.6-6.20); Red Cell Distribution Width 16.2 % (11.5-14.5); White Blood Count 19.1 K/mm3 (4.5-10.0)
[2022-06-27 09:24] LABS: Anion Gap 6 mmol/L (8-16); Blood Urea Nitrogen 64 mg/dL (9-20); Calcium 8.6 mg/dL (8.4-10.2); Carbon Dioxide 29 mmol/L (22-30); Chloride 104 mmol/L (98-107); Estimated CRCL calculation 22 ml/min; Estimated Glomerular Filt Rate 20; Glucose 117 mg/dL (65-110); Magnesium 2.3 mg/dL (1.6-2.3); Potassium 3.6 mmol/L (3.4-5.0); Sodium 139 mmol/L (137-145)
--- NOTE | 2022-06-27 10:55 | PM.CNCAR ---
Assessment and Plan Assessment and plan (1) Paroxysmal atrial fibrillation with RVR: Code(s): I48.0 - Paroxysmal atrial fibrillation Status: Acute Plan This is a 67-year-old man with a very complex situation including a history of ischemic heart disease, transcatheter aortic valve replacement and atrial arrhythmias. He underwent a flutter ablation in the remote past and now has a history of paroxysmal atrial fibrillation which seems to be persistent this week. He describes intolerance of several antiarrhythmic drugs in the past obviously we are at a disadvantage of not having those records here at [place]. We I believe I therefore left with needing to try to provide rate control as best as we can. He is systemically anticoagulated with apixaban which of course is important. His metoprolol dosage has been advanced to 50 mg q.12 hours and with IV diltiazem his heart rate is much better. This morning I am going to transition him to oral diltiazem and follow his telemetry with you while he is in the hospital. We of course will review his echocardiogram after it is performed. With this history I do not believe we will be making an attempt to restore sinus rhythm at [facility] since there are several antiarrhythmic drugs he is telling me that have been used and have been found to be intolerant. Everyone including the patient understands that would be advantageous if he was hospitalized where his medical care is generally delivered but for reasons described above that is not the case. Herb Armstrong MD [facility] History of Present Illness History of Present Illness Consult date/time: 06/27/22 10:55 Consult reason: atrial fibrillation Reason For Visit: Afib w/RVR Narrative: This is a very pleasant but very complex 67-year-old man I am seeing this morning at the request of the hospitalist for assistance with the management and evaluation of atrial fibrillation. The patient is unknown to me prior to this encounter. He has a complex medical history including a history of coronary artery disease, history of atrial flutter and atrial fibrillation, history of transcatheter aortic valve replacement as well as a history of pulmonary fibrosis resulting in the need for a lung transplant previously at [facility] he also carries a diagnosis of chronic kidney disease which he states is also followed by Nephrology at [facility] and is attributed to his anti rejection medications. He states that he was in his usual state of relatively stable health when early part of this past week on Wednesday he noticed some increase in his baseline shortness of breath. His machine presser/transplant physicians were giving him a pulse dose of steroids but he was feeling worse in noting that he was tachycardic. His machine presser and told him to call his insecticide expert who couple of days later returned the call and told him to come to this hospital's Emergency Department. He is not in any great distress in terms of having chest pain struggling to breathe he was oxygenating adequately but he was found to be in AFib with RVR with a left bundle branch block and was admitted to the hospital for further evaluation. He is placed on some intravenous diltiazem which has controlled his heart rate in that he is currently in the range of 100-110 rather than 150-60 when he showed up in the emergency room last evening. The patient otherwise is comfortable at this time and offers no other complaints. He states he is known to have atrial flutter which was diagnosed a number of years ago at another hospital. He underwent an atrial flutter ablation which was successful. Following that he did have episodes of paroxysmal atrial fibrillation. He states his insecticide expert at [facility] has in the past treated him with several antiarrhythmic drugs including amiodarone and a couple of other antiarrhythmics which he did not tolerate and he was then placed on standard a beta-juanpablo treatment. He says that with at
[2022-06-27] MEDS: PERFLUTREN LIPID MICROSPHERES 1.5 ML VIAL DILUTED TO 10 ML TOTAL VOLUME (11:00)
[2022-06-27 12:12] LABS: Glucose Point of Care 217 mg/dl (65-105)
[2022-06-27] MEDS: dilTIAZem HCL CD 180 MG CAP.ER.24H PO (12:50)
[2022-06-27] MEDS: INSULIN ASPART (*BKC) 100 UNITS/ML SUB-Q (12:50)
[2022-06-27] MEDS: INSULIN ASPART (*BKC) 100 UNITS/ML 6 UNITS SUB-Q (12:51)
--- NOTE | 2022-06-27 13:57 | PM.IMPN ---
Progress Note: A&P Assessment and Plan (1) Paroxysmal atrial fibrillation with RVR: Code(s): I48.0 - Paroxysmal atrial fibrillation Status: Acute (2) Type 2 diabetes mellitus with hyperglycemia, with long-term current use of insulin: Code(s): E11.65 - Type 2 diabetes mellitus with hyperglycemia; Z79.4 - terminal supervisor (current) use of insulin Status: Acute (3) Acute kidney injury superimposed on chronic kidney disease: Code(s): N17.9 - Acute kidney failure, unspecified; N18.9 - Chronic kidney disease, unspecified Status: Acute (4) Obstructive sleep apnea on CPAP: Code(s): G47.33 - Obstructive sleep apnea (adult) (pediatric); Z99.89 - Dependence on other enabling machines and devices Status: Acute (5) Lung transplant status: Onset Date: 04/2018 Code(s): Z94.2 - Lung transplant status Status: Acute (6) Elevated troponin: Code(s): R77.8 - Other specified abnormalities of plasma proteins Status: Acute (7) Acute exacerbation of congestive heart failure: Qualifiers: Heart failure type: diastolic Qualified Code(s): I50.33 - Acute on chronic diastolic (congestive) heart failure Code(s): I50.9 - Heart failure, unspecified Status: Acute (8) Chronic respiratory failure with hypoxia, on home oxygen therapy: Code(s): J96.11 - Chronic respiratory failure with hypoxia; Z99.81 - Dependence on supplemental oxygen Status: Acute Plan Patient presented in atrial fibrillation with rapid ventricular response. He was started on a Cardizem drip. At this time will give the patient 1 time dose of metoprolol 50 mg p.o. x1. Given that sounds like the patient has been in AFib RVR pretty persistently for the last 60 weeks I will increase the patient's home metoprolol to 50 mg b.i.d.. If patient remains in AFib RVR in the morning may need to consider cardiology consult. At this time patient's troponins are minimally elevated and flat. This is not indicative of acute ischemic event. Patient is being monitored in IMU on telemetry but is currently boarded in the ER due to bed status. Will continue the patient's Eliquis. The patient does have some chronic findings on chest x-ray with some associated leukocytosis. He has been on a steroid taper since mid April which is likely the reason for the patient's leukocytosis. No other indicators of acute infection. Will continue monitor repeat CBC in a.m.. Will monitor for signs of infection. Patient is chronically immunosuppressed due to prior lung transplant. Will continue the patient's steroid taper. He has 2 more days of 20 mg of prednisone before being tapered to 10 mg a day. I suspect that part of the reason the patient is in AFib RVR is due to his nonadherence with his CPAP/BiPAP therapy over the recent months. I had a prolonged discussion with the patient in the importance of using CPAP on BiPAP. He agreed to use of these devices in then when respiratory went to apply the BiPAP the patient refused. Patient was placed on 3 L nasal cannula to maintain oxygen saturations when he would fall asleep. The patient has a acute kidney injury on chronic kidney disease. Will check attack alignments level to look for possible toxicity. Part of the patient's insufficiency may be due to hypoperfusion due to his heart failure. Will give 1 time dose of Lasix given his symptoms of orthopnea and dyspnea on exertion and reported abdominal distension. Will repeat BMP in a.m. and monitor strict I&O's. Patient has type 2 diabetes mellitus and has hyperglycemia due to steroid use. Will place patient on his home Lantus and will add mealtime bolus insulin as well as sliding scale insulin for per his hyperglycemia. Moderate sliding scale insulin with Accu-Cheks a.c. HS and hypoglycemia protocol have been ordered. Patient's med rec is still not available for my review despite multiple attempts asking nursing staff to re
[2022-06-27] MEDS: TACROLIMUS 0.5 MG CAPSULE 1 MG PO ×2 (15:55→23:53)
[2022-06-27] MEDS: mycophenolate mofetiL 250 MG CAPSULE 1000 MG PO ×2 (15:56→23:56)
[2022-06-27] MEDS: ACYCLOVIR 200 MG CAPSULE PO (15:57)
[2022-06-27] MEDS: PANTOPRAZOLE 40 MG TABLET PO (15:59)
[2022-06-27 16:30] LABS: Glucose Point of Care 113 mg/dl (65-105)
--- NOTE | 2022-06-27 16:53 | PCRCNOTE ---
SPOKE WITH PT. ABOUT WEARING ONE OF OUR CPAP MACHINES; PT. DECLINED BUT STATED HE WOULD LET US KNOW IF HE CHANGES HIS MIND.
[2022-06-27 20:35] LABS: Glucose Point of Care 297 mg/dl (65-105)
[2022-06-28] VITALS (8 sets, daily range): BP systolic 115–127; BP diastolic 72–81; PULSE 76–99; RESP 18–20; TEMP 36.3–36.4; O2SAT 95–100
[2022-06-28 04:47] LABS: Hematocrit 29.5 % (42.0-52.0); Hemoglobin 9.2 g/dL (14.0-18.0); Immature Platelet Fraction Pct 11.6 % (0.9-11.2); Mean Corpuscular HGB Conc 31.2 g/dl (32-36); Mean Corpuscular Hemoglobin 32.6 pg (26-34); Mean Corpuscular Volume 104.6 fl (80-100); Mean Platelet Volume 12.9 fl (7.4-10.4); Platelet Count Result 105 k/mm3 (150-375); Red Blood Count 2.82 M/mm3 (4.6-6.20); Red Cell Distribution Width 15.9 % (11.5-14.5); White Blood Count 14.3 K/mm3 (4.5-10.0)
[2022-06-28 05:03] LABS: Anion Gap 2 mmol/L (8-16); Blood Urea Nitrogen 61 mg/dL (9-20); Carbon Dioxide 29 mmol/L (22-30); Chloride 105 mmol/L (98-107); Estimated CRCL calculation 24 ml/min; Estimated Glomerular Filt Rate 22; Glucose 114 mg/dL (65-110); Magnesium 2.2 mg/dL (1.6-2.3); Potassium 3.4 mmol/L (3.4-5.0); Sodium 136 mmol/L (137-145)
[2022-06-28] MEDS: LEVOTHYROXINE SODIUM 50 MCG TABLET PO (06:41)
[2022-06-28] MEDS: FERROUS SULFATE 324 MG TABLET PO (07:56)
[2022-06-28] MEDS: CALCIUM CARBONATE (OSCAL) 500 MG TABLET 1500 MG PO (08:01)
[2022-06-28] MEDS: TAMSULOSIN HCL 0.4 MG CAPSULE PO (08:01)
[2022-06-28] MEDS: CYANOCOBALAMIN 1,000 MCG TABLET 1000 MCG PO (08:01)
[2022-06-28] MEDS: APIXABAN 5 MG TABLET PO (08:01)
[2022-06-28] MEDS: dilTIAZem HCL CD 180 MG CAP.ER.24H PO (08:01)
[2022-06-28] MEDS: amLODIPine BESYLATE 5 MG TABLET PO (08:02)
[2022-06-28] MEDS: PANTOPRAZOLE 40 MG TABLET PO (08:02)
[2022-06-28] MEDS: CHOLECALCIFEROL 1,000 UNITS TABLET 2000 UNITS PO (08:02)
[2022-06-28] MEDS: ROSUVASTATIN 10 MG TABLET 40 MG PO (08:02)
[2022-06-28] MEDS: LORATADINE 10 MG TABLET PO (08:03)
[2022-06-28] MEDS: METOPROLOL TARTRATE 50 MG TAB PO (08:03)
[2022-06-28] MEDS: ASPIRIN 81 MG ENTERIC TABLET PO (08:03)
[2022-06-28] MEDS: mycophenolate mofetiL 250 MG CAPSULE 1000 MG PO (08:03)
[2022-06-28] MEDS: TACROLIMUS 0.5 MG CAPSULE 1 MG PO (08:04)
[2022-06-28] MEDS: ACYCLOVIR 200 MG CAPSULE PO (08:04)
[2022-06-28] MEDS: INSULIN GLARGINE (*BKC) 100 UNITS/ML 24 UNITS SUB-Q (08:05)
[2022-06-28 08:22] LABS: Glucose Point of Care 102 mg/dl (65-105)
[2022-06-28] MEDS: predniSONE 5 MG TABLET PO (10:55)
[2022-06-28] MEDS: INSULIN ASPART (*BKC) 100 UNITS/ML SUB-Q ×3 (10:58→11:53)
[2022-06-28 11:52] LABS: Glucose Point of Care 239 mg/dl (65-105)
[2022-06-28 12:28] LABS: Glucose Point of Care 256 mg/dl (65-105)
--- NOTE | 2022-06-28 13:15 | PM.PNCARD ---
Progress Note: A&P Assessment and Plan (1) Atrial fibrillation with RVR: Code(s): I48.91 - Unspecified atrial fibrillation Status: Acute Plan 67-year-old man with very complex situation with coronary artery disease valvular heart disease and atrial arrhythmias also prior lung transplantation. He presented to this hospital for management of his AFib with RVR because he could not get a satisfactory response from his physicians in [place]. We have advanced his metoprolol dosage in added some diltiazem his heart rate is now well controlled. From my perspective he is stable enough to be discharged. He of course also is anticoagulated with apixaban. He will need to see his inspector and sorter at [facility] in sure there is not anything more aggressive that they wish to do for management of his atrial fib. From what I can see there probably are not any additional medical antiarrhythmic options other than rate control. He may or may not be a patient that they wish to consider ablation for this. I believe from his description he is previous ablation was for atrial flutter. His cardiovascular follow-up his established at [facility]. I will not schedule an appointment for him in my office for that reason Herb Armstrong MD [facility] Subjective Date/time seen: Date of service: 06/28/22 13:15 Interval history: Follow-up visit in this 67-year-old man with: Atrial fibrillation with rapid ventricular response patient was symptomatic with this with start of onset of symptoms earlier part of last week. Remote history of atrial flutter ablation, history of coronary disease with previous interventions as well as previous TAVR all provided down at [place]. Patient also has a history of lung transplantation and some renal insufficiency. He feels better today following adjustment in his medication his heart rate is now in the 80s and there are no active cardiovascular complaints. Exam Const: General: comfortable and no acute distress HENMT: Mouth: Yes moist mucous membranes Eyes: Sclera: sclerae normal Neck: Neck: supple and no JVD Resp: Effort & Inspection: normal respiratory effort Other: Right hemithorax is clear Velcro sounding rales on the left Cardio: Rhythm: abnormal rhythm irregularly irregular GI: GI Palp: Yes Soft to palpation Auscultation: normal bowel sounds Skin: General skin exam: normal color Neuro: Other: Alert and oriented x3 Extrem: Other: Patient has no edema good distal pulses Objective Data Vital Signs Vital Signs: Vital Signs - 24 hr 06/27/22 14:00 06/27/22 16:00 06/27/22 16:00 Temperature 36.2 C L Pulse Rate 117 H 109 H 104 H Respiratory Rate 16 Blood Pressure 109/70 Pulse Oximetry 98 97 Oxygen Delivery Nasal Cannula Oxygen Flow Rate 3 06/27/22 16:00 06/27/22 18:00 06/27/22 20:00 Temperature 36.4 C L Pulse Rate 109 H 94 92 Respiratory Rate 20 Blood Pressure 124/72 Pulse Oximetry 96 Oxygen Delivery Oxygen Flow Rate 06/27/22 21:01 06/28/22 00:00 06/27/22 20:00 Temperature 36.4 C L Pulse Rate 101 H 86 104 H Respiratory Rate 20 Blood Pressure 124/81 Pulse Oximetry 100 Oxygen Delivery Oxygen Flow Rate 06/27/22 22:00 06/28/22 00:00 06/28/22 02:00 Temperature Pulse Rate 103 H 94 90 Respiratory Rate Blood Pressure Pulse Oximetry Oxygen Delivery Oxygen Flow Rate 06/27/22 20:00 06/28/22 00:00 06/28/22 04:00 Temperature 36.3 C L Pulse Rate 89 Respiratory Rate 20 Blood Pressure 127/72 Pulse Oximetry 96 100 99 Oxygen Delivery Nasal Cannula Nasal Cannula Oxygen Flow Rate 3 3 06/28/22 04:00 06/28/22 04:00 06/28/22 06:00 Temperature Pulse Rate 85 85 Respiratory Rate Blood Pressure Pulse Oximetry 99 Oxygen Delivery Nasal Cannula Oxygen Flow Rate 3 06/28/22 08:00 06/28/22 08:00 06/28/22 08:00 Temperature 36.3 C L Pulse Rate 88 99 96 Respiratory Rate 18
--- NOTE | 2022-06-28 13:47 | PM.DS ---
DS: Admitting Diagnosis Discharge Date 06/28/2022 Admitting Diagnosis shortness of breath DS: Discharge Diagnosis Discharge Diagnosis (1) Paroxysmal atrial fibrillation with RVR: Code(s): I48.0 - Paroxysmal atrial fibrillation Status: Acute (2) Type 2 diabetes mellitus with hyperglycemia, with long-term current use of insulin: Code(s): E11.65 - Type 2 diabetes mellitus with hyperglycemia; Z79.4 - snf (current) use of insulin Status: Acute (3) Acute kidney injury superimposed on chronic kidney disease: Code(s): N17.9 - Acute kidney failure, unspecified; N18.9 - Chronic kidney disease, unspecified Status: Acute (4) Obstructive sleep apnea on CPAP: Code(s): G47.33 - Obstructive sleep apnea (adult) (pediatric); Z99.89 - Dependence on other enabling machines and devices Status: Acute (5) Lung transplant status: Onset Date: 04/2018 Code(s): Z94.2 - Lung transplant status Status: Acute (6) Elevated troponin: Code(s): R77.8 - Other specified abnormalities of plasma proteins Status: Acute (7) Acute exacerbation of congestive heart failure: Qualifiers: Heart failure type: diastolic Qualified Code(s): I50.33 - Acute on chronic diastolic (congestive) heart failure Code(s): I50.9 - Heart failure, unspecified Status: Acute (8) Chronic respiratory failure with hypoxia, on home oxygen therapy: Code(s): J96.11 - Chronic respiratory failure with hypoxia; Z99.81 - Dependence on supplemental oxygen Status: Acute Plan Patient presented in atrial fibrillation with rapid ventricular response. He was started on a Cardizem drip. At this time will give the patient 1 time dose of metoprolol 50 mg p.o. x1. Given that sounds like the patient has been in AFib RVR pretty persistently for the last 60 weeks I will increase the patient's home metoprolol to 50 mg b.i.d.. If patient remains in AFib RVR in the morning may need to consider cardiology consult. At this time patient's troponins are minimally elevated and flat. This is not indicative of acute ischemic event. Patient is being monitored in IMU on telemetry but is currently boarded in the ER due to bed status. Will continue the patient's Eliquis. The patient does have some chronic findings on chest x-ray with some associated leukocytosis. He has been on a steroid taper since mid April which is likely the reason for the patient's leukocytosis. No other indicators of acute infection. Will continue monitor repeat CBC in a.m.. Will monitor for signs of infection. Patient is chronically immunosuppressed due to prior lung transplant. Will continue the patient's steroid taper. He has 2 more days of 20 mg of prednisone before being tapered to 10 mg a day. I suspect that part of the reason the patient is in AFib RVR is due to his nonadherence with his CPAP/BiPAP therapy over the recent months. I had a prolonged discussion with the patient in the importance of using CPAP on BiPAP. He agreed to use of these devices in then when respiratory went to apply the BiPAP the patient refused. Patient was placed on 3 L nasal cannula to maintain oxygen saturations when he would fall asleep. The patient has a acute kidney injury on chronic kidney disease. Will check attack alignments level to look for possible toxicity. Part of the patient's insufficiency may be due to hypoperfusion due to his heart failure. Will give 1 time dose of Lasix given his symptoms of orthopnea and dyspnea on exertion and reported abdominal distension. Will repeat BMP in a.m. and monitor strict I&O's. Patient has type 2 diabetes mellitus and has hyperglycemia due to steroid use. Will place patient on his home Lantus and will add mealtime bolus insulin as well as sliding scale insulin for per his hyperglycemia. Moderate sliding scale insulin with Accu-Cheks a.c. HS and hypoglycemia protocol have been ordered. Leona
[2022-06-28] MEDS: predniSONE 5 MG TABLET 15 MG PO (13:52)
--- NOTE | 2022-06-28 16:12 | PC.NURSE ---
Patient discharge home with . Patient denies pain, SOB, CP. VS stable at this time. Belongings were sent with family. Patient wheeled out of unit with [employer].
== END 2022-06-28 15:50 | disposition home or self-care (01) | DRG 308 ==
LOC: ANHED 17:22 → ANHIMU 20:49
PROVIDERS: General Practice; Internal Medicine; Admitting Provider Family Medicine; Emergency Provider Emergency Medicine; PCP Family Medicine; Visit Provider Family Medicine
DX: I48.0 Paroxysmal atrial fibrillation (principal); I50.33 Acute on chronic diastolic (congestive) heart failure; N17.9 Acute kidney failure, unspecified; Z94.2 Lung transplant status; J96.11 Chronic respiratory failure with hypoxia; I13.0 Hypertensive heart and chronic kidney disease with heart failure and stage 1 through stage 4 chronic kidney disease, or unspecified chronic kidney disease; E11.65 Type 2 diabetes mellitus with hyperglycemia; G47.33 Obstructive sleep apnea (adult) (pediatric); R77.8 Other specified abnormalities of plasma proteins; Z99.81 Dependence on supplemental oxygen; I25.10 Atherosclerotic heart disease of native coronary artery without angina pectoris; Z95.5 Presence of coronary angioplasty implant and graft; Z95.2 Presence of prosthetic heart valve; E78.2 Mixed hyperlipidemia; K21.9 Gastro-esophageal reflux disease without esophagitis; E11.22 Type 2 diabetes mellitus with diabetic chronic kidney disease; N18.32 Chronic kidney disease, stage 3b; Z20.822 Contact with and (suspected) exposure to COVID-19; Z87.891 Personal history of nicotine dependence; Z79.82 Long term (current) use of aspirin; Z79.4 Long term (current) use of insulin; Z79.899 Other long term (current) drug therapy
CPT/HCPCS: 36415; 71046; 80048; 80053; 80197; 82948; 83690; 83735; 83880; 84484; 85025; 85027; 85055; 85610; 85730; 87637; 93005; 93306; 96365; 96366; 96375; 99285; A9270; C8929; G0378; J1815; J1940; J7040; J7512; J7517; Q9957